=== PATIENT | female | born 1985 | race Caucasian/White ===

== ENCOUNTER 2020-01-17 12:13 | Outpatient (REF) | payer MEDICAID, SELFPAY | END 2020-01-17 12:14 | disposition home or self-care (01) | LOC: HO.LAB 12:13 | PROVIDERS: Visit Provider Internal Medicine | DX: Z20.828 Contact with and (suspected) exposure to other viral communicable diseases (principal) | CPT/HCPCS: C9803; U0003 ==

== ENCOUNTER 2020-04-30 15:14 | Outpatient (REF) | payer MEDICAID, SELFPAY | END 2020-04-30 15:15 | disposition home or self-care (01) | LOC: HO.LAB 15:14 | PROVIDERS: Visit Provider Internal Medicine | DX: Z20.822 Contact with and (suspected) exposure to COVID-19 (principal) | CPT/HCPCS: 36415; C9803; U0003; U0005 ==

== ENCOUNTER 2020-09-28 14:37 | Outpatient (REF) | payer MEDICAID, SELFPAY ==
[2020-09-28 15:22] LABS: COVID-19 Test Negative (Negative)
== END 2020-09-28 14:38 | disposition home or self-care (01) ==
LOC: HO.LAB 14:37
PROVIDERS: PCP Nurse Practitioner Family; Visit Provider Internal Medicine
DX: Z20.822 Contact with and (suspected) exposure to COVID-19 (principal)
CPT/HCPCS: 36415; 87635; C9803

== ENCOUNTER 2022-05-26 14:01 | Emergency (ER) | payer OTHER, SELFPAY ==
--- NOTE | ~2022-05-26 | XR_ITS ---
EXAMINATION: XR CHEST CLINICAL INFORMATION: Chest pain COMPARISON: None available. TECHNIQUE: 2 views of the chest were obtained. FINDINGS: No significant abnormality is noted involving the heart, lungs, mediastinum, bony thorax or soft tissues. XR/XR chest 2V IMPRESSION: Unremarkable chest examination.
--- NOTE | 2022-05-26 14:03 | ECG_ITS ---
Test Reason : chest pain Blood Pressure : / mmHG Vent. Rate : 079 BPM Atrial Rate : 079 BPM P-R Int : 142 ms QRS Dur : 088 ms QT Int : 390 ms P-R-T Axes : 031 056 051 degrees QTc Int : 447 ms Normal sinus rhythm Normal ECG When compared with ECG of 27-MAY-2013 17:05, No significant change was found Referred By: Generic ED Physician Electronically Signed By:DEVAUGHN THOMSON MD
--- NOTE | 2022-05-26 14:07 | ED_ITS ---
HPI - Chest Pain General Chief Complaint: Chest Pain <Carlene Hernandez NP - Last Filed: 05/26/22 14:10> Stated Complaint: sore throat/ chest pain x3 <Carlene Hernandez NP - Last Filed: 05/26/22 14:10> Time Seen by Provider: 05/26/22 14:39 <Carlene Hernandez NP - Last Filed: 05/26/22 14:10> Source: patient <LEA Thomas - Last Filed: 05/26/22 15:58> Mode of arrival: ambulatory <LEA Thomas - Last Filed: 05/26/22 15:58> Limitations: no limitations <LEA Thomas - Last Filed: 05/26/22 15:58> History of Present Illness HPI narrative: Patient is a 37 year old assigned female at with no significant PMH presenting to the emergency department today with episodic 5/10 stabbing left chest pain that radiates to the scapula lasting about 20 mins x3 days and sore throat this AM. Patient states that she does not have any heart condition. Reports the feeling like her heart skips a beat , dizziness, and nausea with the chest pain. Has not noticed any correlation with food. Reports her daughter just tested positive for streptococcal pharyngitis today. Patient denies any lightheadedness, abdominal pain, vomiting, fever, chills, blurry vision, double vision, loss of vision, difficulty breathing, shortness of breath, back pain, night sweats, pain with urination, increased urinary frequency, increased urinary urgency, blood in her urine or stool, syncope or a near syncopal episode, recent trauma or falls, bowel incontinence, bladder incontinence, bowel retention, bladder retention, or any other complaints at this time. <LEA Thomas - Last Filed: 05/26/22 15:58> MD complaint: chest pain <LEA Thomas - Last Filed: 05/26/22 15:58> Onset (ago): day(s) <LEA Thomas Last Filed: 05/26/22 15:58> Timing of current episode: episodic <LEA Thomas Last Filed: 05/26/22 15:58> Prior episodes: Yes <LEA Thomas - Last Filed: 05/26/22 15:58> Pain location: left chest <LEA Thomas - Last Filed: 05/26/22 15:58> Pain radiation: left scapula <LEA Thomas - Last Filed: 05/26/22 15:58> Quality: sharp <LEA Thomas - Last Filed: 05/26/22 15:58> Relieving factors: nothing <LEA Thomas - Last Filed: 05/26/22 15:58> Exacerbating factors: nothing <LEA Thomas - Last Filed: 05/26/22 15:58> Treatment prior to arrival: none <LEA Thomas - Last Filed: 05/26/22 15:58> Related Data Home Medications: Previous Rx's Medication Instructions Recorded penicillin V potassium 500 mg 500 mg PO BID 10 days #20 tabs 05/26/22 tablet <Carlene Hernandez NP - Last Filed: 05/26/22 14:10> Allergies/Adverse Reactions: Allergies Allergy/AdvReac Type Severity Reaction Status Date / Time No Known Allergies Allergy Verified 05/26/22 14:09 <Carlene Hernandez NP - Last Filed: 05/26/22 14:10> Review of Systems Constitutional: Constitutional: Reports no additional constitutional complaints, Denies chills, Denies fever(s) and Denies night sweats <LEA Thomas - Last Filed: 05/26/22 15:58> Eyes: Eyes: Reports no additional eye complaints, Denies blurry vision, Denies change in vision, Denies diplopia, Denies eye discharge, Denies loss of vision and Denies eye pain <LEA Thomas - Last Filed: 05/26/22 15:58> ENT: Denies dizziness and Reports sore throat <LEA Thomas - Last Filed: 05/26/22 15:58> Cardiovascular: Cardiovascular: Reports as per HPI, Reports chest pain, Reports chest pain at rest, Denies lightheadedness, Denies Loss of Consciousness and Denies dyspnea <LEA Thomas - Last Filed: 05/26/22 15:58> Respiratory: Respiratory: Reports no additional respiratory complaints and Denies dyspnea <LEA Thomas - Last Filed: 05/26/22 15:58> Gastrointestinal: Gastrointestinal: Reports no additional gastrointestinal complaints, Denies abdominal pain, Denies melena, Denies hematochezia, Denies change in bowel habits and Denies change in stool character <LEA Chaudhary - Last Filed: 05/26/22 15:58> Genitourinary: Genitourinary: Denies hematuria, Denies urinary frequency, Denies dysuria, Denies urinary incontinence, Denies urinary hesitancy and Denies urinary urgency <LEA Thomas - Last Filed: 05/26/22 15:58> Musculoskeletal: Musculoskeletal: Reports no additional musculoskeletal complaints, Denies numbness and Denies tingling <LEA Thomas - Last Filed: 05/26/22 15:58> Neurologic: Denies dizziness, Denies loss of vision, Denies numbness and Denies tingling <LEA Thomas - Last Filed: 05/26/22 15:58> Allergic/Immunologic: Allergic/Immunologic: Reports no additional allergic/immunologic complaints <LEA Thomas - Last Filed: 05/26/22 15:58> PMFSH Past Medical History Attestation statement: The following information was validated with the patient. <LEA Thomas - Last Filed: 05/26/22 15:58> Source: old records reviewed and nursing notes reviewed <LEA Thomas - Last Filed: 05/26/22 15:58> Social History Social History: Social History Alcohol intake: never Smoked in Last 30 Days: No Use of substances other than those prescribed or required for medical reasons: No Advance Directives: No <Carlene Hernandez NP - Last Filed: 05/26/22 14:10> Physical Exam Vital Signs: Vital Signs: Last Vital Signs Temp 98.8 F 05/26/22 14:25 Pulse 76 05/26/22 15:30 Resp 18 05/26/22 15:30 BP 137/77 05/26/22 15:30 Pulse Ox 98 05/26/22 15:30 O2 Del Method Room Air 05/26/22 15:30 BMI result Body Mass Index 30.9 <Carlene Hernandez NP - Last Filed: 05/26/22 14:10> Vital Signs: Last Vital Signs Temp 98.8 F 05/26/22 14:25 Pulse 76 05/26/22 15:30 Resp 18 05/26/22 15:30 BP 137/77 05/26/22 15:30 Pulse Ox 98 05/26/22 15:30 O2 Del Method Room Air 05/26/22 15:30 BMI result Body Mass Index 30.9 <LEA Thomas - Last Filed: 05/26/22 15:58> Const: General: cooperative, no acute distress, alert and awake <LEA Thomas - Last Filed: 05/26/22 15:58> Nutritional Appearance: well nourished <LEA Thomas - Last Filed: 05/26/22 15:58> Orientation/consciousness: patient oriented x3 <LEA Thomas - Last Filed: 05/26/22 15:58> Limitations: no limitations <LEA Thomas - Last Filed: 05/26/22 15:58> HEENT: Head: Yes normal to inspection and Yes atraumatic <LEA Thomas - Last Filed: 05/26/22 15:58> Ears: hearing grossly normal bilaterally and external ears normal <LEA Thomas - Last Filed: 05/26/22 15:58> General nose exam: Normal external nose present, no nasal discharge noted and no epistaxis <LEA Thomas - Last Filed: 05/26/22 15:58> Face and sinus: Yes normal facial exam, No abrasion and No laceration <LEA Thomas - Last Filed: 05/26/22 15:58> Mouth: Normal oral and palatal mucosa present, no drooling and no muffled voice <LEA Thomas - Last Filed: 05/26/22 15:58> Throat: Yes uvula midline and Yes abnormal tonsil (mildly swollen and erythematous ) <LEA Thomas - Last Filed: 05/26/22 15:58> Eyes: General: appearance normal, both eyes and all related structures <LEA Thomas - Last Filed: 05/26/22 15:58> Periorbital: periorbital findings normal <Zhane Mitchell PA - Last Filed: 05/26/22 15:58> Eyelids: Yes eyelids normal <Zhane Mitchell PA - Last Filed: 05/26/22 15:58> Conjunctivae: conjunctivae normal <Zhane Mitchell PA - Last Filed: 05/26/22 15:58> Pupils: Equal, round and reactive pupils present <Zhane Mitchell PA - Last Filed: 05/26/22 15:58> EOM: EOMs intact bilaterally <Zhane Mitchell PA - Last Filed: 05/26/22 15:58> Neck: Neck: Yes normal visual inspection, Yes full ROM and Yes no lymphadenopathy <Zhane Mitchell PA - Last Filed: 05/26/22 15:58> Chest: Chest palpation & inspection: normal inspection of the chest <Zhane Mitchell PA - Last Filed: 05/26/22 15:58> Resp: Effort & Inspection: normal respiratory effort and able to speak in complete sentences <Zhane Mitchell PA - Last Filed: 05/26/22 15:58> Auscultation: clear to auscultation bilaterally <Zhane Mitchell PA - Last Filed: 05/26/22 15:58> Cardio: Rate: regular rate <Zhane Mitchell PA - Last Filed: 05/26/22 1 5:58> Rhythm: regular rhythm <Zhane Mitchell PA - Last Filed: 05/26/22 15:58> GI: Inspection: Yes normal to inspection <Zhane Micthell PA - Last Filed: 05/26/22 15:58> Neuro: General: patient oriented x3 and moves all extremities <Zhane Mitchell PA - Last Filed: 05/26/22 15:58> Cranial nerves: Yes Equal, round and reactive pupils present <Zhane Mitchell PA - Last Filed: 05/26/22 15:58> Cognition (Neuro): normal cognition <Zhane Mitchell PA - Last Filed: 05/26/22 15:58> Motor exam (neuro): 5/5 motor strength present throughout <Zhane Mitchell PA - Last Filed: 05/26/22 15:58> Sensory Exam: Normal double simultaneous stimulation for sensation <LEA Thomas - Last Filed: 05/26/22 15:58> Coordination: [id number] test normal <LEA Thomas - Last Filed: 05/26/22 15:58> Extrem: General: Yes normal to inspection, Yes full ROM and Yes capillary refill normal <LEA Thomas - Last Filed: 05/26/22 15:58> Psych: Appearance: grossly normal <LEA Thomas - Last Filed: 05/26/22 15:58> Mental Status: mental status grossly normal <LEA Thomas - Last Filed: 05/26/22 15:58> Affect: normal affect <LEA Thomas - Last Filed: 05/26/22 15:58> Attitude: cooperative <LEA Thomas - Last Filed: 05/26/22 15:58> Thought process: Normal thought process present <LEA Thomas - Last Filed: 05/26/22 15:58> Thought content: Normal thought content present <LEA Thomas - Last Filed: 05/26/22 15:58> Insight: Good insight present (Psych) <LEA Thomas - Last Filed: 05/26/22 15:58> Course Course Course Narrative: This is a rapid medical exam. deferred additional HPI, ROS, PE to primary provider. 37 yo female with no known medical problems here with complaints of chest pain x 3 days, sore throat began today. Friend has strep. Will check labs, EKG, CXR, covid/flu/rsv/strep testing. VSS <Carlene Hernandez NP - Last Filed: 05/26/22 14:10> Medications Administered Discontinued Medications Generic Name Dose Route Start Last Admin Trade Name Freq PRN Reason Stop Dose Admin Penicillin V Potassium 500 mg 05/26/22 15:33 05/26/22 15:47 Penicillin V Potassium 250 Mg Tablet PO 05/26/22 15:34 500 mg ONCE ONE Administration <Carlene Hernandez NP - Last Filed: 05/26/22 14:10> Medications Administered Discontinued Medications Generic Name Dose Route Start Last Admin Trade Name Freq PRN Reason Stop Dose Admin Penicillin V Potassium 500 mg 05/26/22 15:33 05/26/22 15:47 Penicillin V Potassium 250 Mg Tablet PO 05/26/22 15:34 500 mg ONCE ONE Administration <LEA Thomas - Last Filed: 05/26/22 15:58> Medical Decision Making Medical Decision Making [facility] Narrative: Patient is a 37 year old assigned female at with no reported medical history presenting to the emergency department today with a sore throat and chest pain. Patient's physical exam was as documented in the physical examination portion of this chart. Patient's blood work was unremarkable. Patient's EKG was unremarkable. Patient's chest x-ray showed no acute process. Patient's strep test was positive. I explained my physical exam findings as well as all test results to the patient. I answered all questions asked by the patient. I stressed the importance of the patient taking her medication as prescribed. I stressed the importance of the patient following up with her primary care provider. I stressed the importance of the patient returning to the emergency department immediately if her symptoms were to worsen or if she were to develop any dizziness, shortness of breath, difficulty breathing, chest pain, blurry vision, loss of vision, nausea, vomiting, abdominal pain, fever, chills, back pain, or any other complaints. Patient verbalized agreement and understanding with this treatment plan and discharge. <LEA Thomas - Last Filed: 05/26/22 15:58> Differential Diagnosis Differential Diagnoses: The differential diagnosis associated with the presentation includes <LEA Thomas - Last Filed: 05/26/22 15:58> strep pharyngitis <LEA Thomas - Last Filed: 05/26/22 15:58> Lab Data [facility] Lab Attestation statement: I reviewed the patient's lab results. <LEA Thomas - Last Filed: 05/26/22 15:58> Result Diagrams: 05/26/22 14:36 05/26/22 14:36 <Carlene Hernandez NP - Last Filed: 05/26/22 14:10> Labs: Lab Results 05/26/22 05/26/22 05/26/22 Range/Units 14:36 14:36 14:36 WBC 11.5 H (4.8-10.8) X10*3/uL RBC 4.00 L (4.20-5.50) X10*6/uL Hgb 12.4 (12.0-16.0) g/dl Hct 37.5 (37.0-47.0) % MCV 93.8 (80.0-98.0) fL MCH 31.0 (27.0-33.0) pg MCHC 33.1 (31.0-35.0) g/dl RDW 13.7 (11.0-16.0) % Plt Count 310 (160-400) X10*3/uL MPV 9.3 L (9.4-12.3) fL Immature Gran % (Auto) 0.5 H (0.0-0.4) % Neut % (Auto) 85.0 H (45-73) % Lymph % (Auto) 9.8 L (20-40) % [place] % (Auto) 4.2 (2-11) % Eos % (Auto) 0.3 (0-4) % Baso % (Auto) 0.2 (0-2) % Lymph # (Auto) 1.1 L (1.2-4.9) X10*3/uL [place] # (Auto) 0.5 (0.1-1.2) X10*3/uL Eos # (Auto) 0.0 (0.0-0.4) X10*3/uL Baso # (Auto) 0.0 (0.0-0.2) X10*3/uL Abs Immat Gran (auto) 0.06 H (0.00-0.03) X10*3/uL Absolute Neuts (auto) 9.8 H (2.0-8.3) x10*3/uL Absolute Nucleated RBC 0.000 (0.0-0.012) X10*3/uL Nucleated RBC % (auto) 0.0 (0.0-0.2) /100WBC PT (10.0-13.1) SEC INR (0.9-1.1) Sodium 143 (135-145) mmol/L Potassium 3.6 (3.3-5.1) mmol/L Chloride 106 (96-108) mmol/L Carbon Dioxide 26 (22-29) mmol/L Anion Gap 15 (12-20) BUN 16 (9-16) mg/dL Creatinine 0.64 (0.5-1.4) mg/dL Estim Creat Clear Calc 117.7 Estimated GFR > 60 Random Glucose 88 (60-115) mg/dL Calcium 9.8 (8.4-10.2) mg/dL Total Bilirubin 0.8 (0.0-1.0) mg/dL Direct Bilirubin 0.2 (0.0-0.5) mg/dL AST 13 (5-31) U/L ALT 12 (0-31) U/L Alkaline Phosphatase 91 (39-117) U/L Troponin I High Sens < 2.7 (<3.5-17.0) ng/L Total Protein 7.2 (6.5-8.0) g/dL Albumin 4.4 (3.5-5.0) g/dL Influenza Type A (PCR) (Negative) Influenza Type B (PCR) (Negative) RSV RNA Qual (PCR) (Negative) SARS-CoV-2 RNA (RT-PCR) (Negative) S. pyogenes GrpA JAYLAN (Negative) 05/26/22 05/26/22 05/26/22 Range/Units 14:36 14:37 14:37 WBC (4.8-10.8) X10*3/uL RBC (4.20-5.50) X10*6/uL Hgb (12.0-16.0) g/dl Hct (37.0-47.0) % MCV (80.0-98.0) fL MCH (27.0-33.0) pg MCHC (31.0-35.0) g/dl RDW (11.0-16.0) % Plt Count (160-400) X10*3/uL MPV (9.4-12.3) fL Immature Gran % (Auto) (0.0-0.4) % Neut % (Auto) (45-73) % Lymph % (Auto) (20-40) % [place] % (Auto) (2-11) % Eos % (Auto) (0-4) % Baso % (Auto) (0-2) % Lymph # (Auto) (1.2-4.9) X10*3/uL [place] # (Auto) (0.1-1.2) X10*3/uL Eos # (Auto) (0.0-0.4) X10*3/uL Baso # (Auto) (0.0-0.2) X10*3/uL Abs Immat Gran (auto) (0.00-0.03) X10*3/uL Absolute Neuts (auto) (2.0-8.3) x10*3/uL Absolute Nucleated RBC (0.0-0.012) X10*3/uL Nucleated RBC % (auto) (0.0-0.2) /100WBC PT 12.9 (10.0-13.1) SEC INR 1.1 (0.9-1.1) Sodium (135-145) mmol/L Potassium (3.3-5.1) mmol/L Chloride (96-108) mmol/L Carbon Dioxide (22-29) mmol/L Anion Gap (12-20) BUN (9-16) mg/dL Creatinine (0.5-1.4) mg/dL Estim Creat Clear Calc Estimated GFR Random Glucose (60-115) mg/dL Calcium (8.4-10.2) mg/dL Total Bilirubin (0.0-1.0) mg/dL Direct Bilirubin (0.0-0.5) mg/dL AST (5-31) U/L ALT (0-31) U/L Alkaline Phosphatase (39-117) U/L Troponin I High Sens (<3.5-17.0) ng/L Total Protein (6.5-8.0) g/dL Albumin (3.5-5.0) g/dL Influenza Type A (PCR) NEGATIVE (Negative) Influenza Type B (PCR) NEGATIVE (Negative) RSV RNA Qual (PCR) NEGATIVE (Negative) SARS-CoV-2 RNA (RT-PCR) NEGATIVE (Negative) S. pyogenes GrpA JAYLAN Positive A (Negative) <Carlene Hernandez CLINICAL EXERCISE PHYSIOLOGIST - Last Filed: 05/26/22 14:10> Lab Results 05/26/22 05/26/22 05/26/22 Range/Units 14:36 14:36 14:36 WBC 11.5 H (4.8-10.8) X10*3/uL RBC 4.00 L (4.20-5.50) X10*6/uL Hgb 12.4 (12.0-16.0) g/dl Hct 37.5 (37.0-47.0) % MCV 93.8 (80.0-98.0) fL MCH 31.0 (27.0-33.0) pg MCHC 33.1 (31.0-35.0) g/dl RDW 13.7 (11.0-16.0) % Plt Count 310 (160-400) X10*3/uL MPV 9.3 L (9.4-12.3) fL Immature Gran % (Auto) 0.5 H (0.0-0.4) % Neut % (Auto) 85.0 H (45-73) % Lymph % (Auto) 9.8 L (20-40) % [place] % (Auto) 4.2 (2-11) % Eos % (Auto) 0.3 (0-4) % Baso % (Auto) 0.2 (0-2) % Lymph # (Auto) 1.1 L (1.2-4.9) X10*3/uL [place] # (Auto) 0.5 (0.1-1.2) X10*3/uL Eos # (Auto) 0.0 (0.0-0.4) X10*3/uL Baso # (Auto) 0.0 (0.0-0.2) X10*3/uL Abs Immat Gran (auto) 0.06 H (0.00-0.03) X10*3/uL Absolute Neuts (auto) 9.8 H (2.0-8.3) x10*3/uL Absolute Nucleated RBC 0.000 (0.0-0.012) X10*3/uL Nucleated RBC % (auto) 0.0 (0.0-0.2) /100WBC PT (10.0-13.1) SEC INR (0.9-1.1) Sodium 143 (135-145) mmol/L Potassium 3.6 (3.3-5.1) mmol/L Chloride 106 (96-108) mmol/L Carbon Dioxide 26 (22-29) mmol/L Anion Gap 15 (12-20) BUN 16 (9-16) mg/dL Creatinine 0.64 (0.5-1.4) mg/dL Estim Creat Clear Calc 117.7 Estimated GFR > 60 Random Glucose 88 (60-115) mg/dL Calcium 9.8 (8.4-10.2) mg/dL Total Bilirubin 0.8 (0.0-1.0) mg/dL Direct Bilirubin 0.2 (0.0-0.5) mg/dL AST 13 (5-31) U/L ALT 12 (0-31) U/L Alkaline Phosphatase 91 (39-117) U/L Troponin I High Sens < 2.7 (<3.5-17.0) ng/L Total Protein 7.2 (6.5-8.0) g/dL Albumin 4.4 (3.5-5.0) g/dL Influenza Type A (PCR) (Negative) Influenza Type B (PCR) (Negative) RSV RNA Qual (PCR) (Negative) SARS-CoV-2 RNA (RT-PCR) (Negative) S. pyogenes GrpA JAYLAN (Negative) 05/26/22 05/26/22 05/26/22 Range/Units 14:36 14:37 14:37 WBC (4.8-10.8) X10*3/uL RBC (4.20-5.50) X10*6/uL Hgb (12.0-16.0) g/dl Hct (37.0-47.0) % MCV (80.0-98.0) fL MCH (27.0-33.0) pg MCHC (31.0-35.0) g/dl RDW (11.0-16.0) % Plt Count (160-400) X10*3/uL MPV (9.4-12.3) fL Immature Gran % (Auto) (0.0-0.4) % Neut % (Auto) (45-73) % Lymph % (Auto) (20-40) % [place] % (Auto) (2-11) % Eos % (Auto) (0-4) % Baso % (Auto) (0-2) % Lymph # (Auto) (1.2-4.9) X10*3/uL [place] # (Auto) (0.1-1.2) X10*3/uL Eos # (Auto) (0.0-0.4) X10*3/uL Baso # (Auto) (0.0-0.2) X10*3/uL Abs Immat Gran (auto) (0.00-0.03) X10*3/uL Absolute Neuts (auto) (2.0-8.3) x10*3/uL Absolute Nucleated RBC (0.0-0.012) X10*3/uL Nucleated RBC % (auto) (0.0-0.2) /100WBC PT 12.9 (10.0-13.1) SEC INR 1.1 (0.9-1.1) Sodium (135-145) mmol/L Potassium (3.3-5.1) mmol/L Chloride (96-108) mmol/L Carbon Dioxide (22-29) mmol/L Anion Gap (12-20) BUN (9-16) mg/dL Creatinine (0.5-1.4) mg/dL Estim Creat Clear Calc Estimated GFR Random Glucose (60-115) mg/dL Calcium (8.4-10.2) mg/dL Total Bilirubin (0.0-1.0) mg/dL Direct Bilirubin (0.0-0.5) mg/dL AST (5-31) U/L ALT (0-31) U/L Alkaline Phosphatase (39-117) U/L Troponin I High Sens (<3.5-17.0) ng/L Total Protein (6.5-8.0) g/dL Albumin (3.5-5.0) g/dL Influenza Type A (PCR) NEGATIVE (Negative) Influenza Type B (PCR) NEGATIVE (Negative) RSV RNA Qual (PCR) NEGATIVE (Negative) SARS-CoV-2 RNA (RT-PCR) NEGATIVE (Negative) S. pyogenes GrpA JAYLAN Positive A (Negative) <LEA Thomas - Last Filed: 05/26/22 15:58> Independent Interpretation I performed an independent interpretation of an: EKG <LEA Thomas - Last Filed: 05/26/22 15:58> Interpretation: Vent. Rate: 079 BPM ? ? Atrial Rate: 079 BPM P-R Int: 142 ms? QRS Dur: 088 ms QT Int: 390 ms ? ? ? P-R-T Axes: 031 056 051 degrees QTc Int: 447 ms ? Normal sinus rhythm Normal ECG When compared with ECG of 27-MAY-2013 17:05, No significant change was found DD/ 1404 <LEA Thomas - Last Filed: 05/26/22 15:58> Radiology Impression Radiologist Impression: My interpretation is in agreement with the radiologist's impression of this imaging study. EXAMINATION: XR CHEST CLINICAL INFORMATION: Chest pain COMPARISON: None available. TECHNIQUE: 2 views of the chest were obtained. FINDINGS: No significant abnormality is noted involving the heart, lungs, mediastinum, bony thorax or soft tissues. XR/XR chest 2V IMPRESSION: Unremarkable chest examination. Dictated By: Brian Wharton MD Signed By: Electronically signed by Brian Wharton MD 05/26/22 1436 <LEA Thomas - Last Filed: 05/26/22 15:58> Discharge Plan Discharge Clinical Impression: Strep pharyngitis <Carlene Hernandez NP - Last Filed: 05/26/22 14:10> Patient Disposition: Home, Self-Care <Carlene Hernandez NP - Last Filed: 05/26/22 14:10> Instructions: Strep Throat (DC) <Carlene Hernandez NP - Last Filed: 05/26/22 14:10> Additional Instructions: Follow up with your primary care provider. Return to the emergency department immediately if your symptoms worsen or if you develop any dizziness, shortness of breath, difficulty breathing, chest pain, blurry vision, loss of vision, nausea, vomiting, abdominal pain, fever, chills, back pain, or any other complaints. <Carlene Hernandez NP - Last Filed: 05/26/22 14:10> Prescriptions: New penicillin V potassium 500 mg tablet 500 mg PO BID 10 Days Qty: 20 0RF <Carlene Hernandez NP - Last Filed: 05/26/22 14:10> Referrals: Diane Maddox, CLINICAL EXERCISE PHYSIOLOGIST [Primary Care Provider] - <Carlene Hernandez NP - Last Filed: 05/26/22 14:10> Stand Alone Forms: Work/School Release <Carlene Hernandez NP - Last Filed: 05/26/22 14:10> Interventions: ED Discharge Assessment Last Done: 05/26/22 15:48 <Carlene Hernandez NP - Last Filed: 05/26/22 14:10> Discharge Date/Time: 05/26/22 15:48 <Carlene Hernandez NP - Last Filed: 05/26/22 14:10> Print Language: Greek <Carlene Hernandez NP - Last Filed: 05/26/22 14:10>
[2022-05-26 14:10] VITALS: BP 129/80; PULSE 88; RESP 18; TEMP 36.6; O2SAT 98; BMI 30.9
[2022-05-26 14:25] VITALS: BP 126/71; PULSE 74; RESP 17; TEMP 37.1; O2SAT 99
--- NOTE | 2022-05-26 14:40 | PC.NURSE ---
Pt arrived ambulatory, complaints of CP x3days, with sharp pains that shoot through to her back. She is a/ox4, reports heart fluttering as well, with moments of SOB. Denies n/v/d. Labs obtained, and pt placed on monitor, provider at bedside now.
[2022-05-26 14:41] LABS: MANUAL DIFF FLAG NO
[2022-05-26 14:46] LABS: Basophils Percent Auto 0.2 % (0-2); Eosinophils Percent Auto 0.3 % (0-4); Hematocrit 37.5 % (37.0-47.0); Hemoglobin 12.4 g/dl (12.0-16.0); Imm Gran Abs Auto 0.06 X10*3/uL (0.00-0.03); Imm Gran Pct Auto 0.5 % (0.0-0.4); Lymphocytes Absolute Auto 1.1 X10*3/uL (1.2-4.9); Lymphocytes Percent Auto 9.8 % (20-40); Mean Corpuscular HGB Conc 33.1 g/dl (31.0-35.0); Mean Corpuscular Volume 93.8 fL (80.0-98.0); Mean Platelet Volume 9.3 fL (9.4-12.3); Monocytes Absolute Auto 0.5 X10*3/uL (0.1-1.2); Monocytes Percent Auto 4.2 % (2-11); Neutrophils Absolute Auto 9.8 x10*3/uL (2.0-8.3); Platelet Count 310 X10*3/uL (160-400); Red Cell Distribution Width 13.7 % (11.0-16.0); White Blood Count 11.5 X10*3/uL (4.8-10.8)
[2022-05-26 14:59] LABS: INTERNATIONAL NORM RATIO 1.1 (0.9-1.1); Prothrombin Time 12.9 SEC (10.0-13.1)
[2022-05-26 15:00] LABS: Alanine Aminotransferase 12 U/L (0-31); Albumin Level 4.4 g/dL (3.5-5.0); Alkaline Phosphatase 91 U/L (39-117); Anion Gap 15 (12-20); Aspartate Amino Transferase 13 U/L (5-31); Bilirubin Direct 0.2 mg/dL (0.0-0.5); Bilirubin Total 0.8 mg/dL (0.0-1.0); Blood Urea Nitrogen 16 mg/dL (9-16); Calcium 9.8 mg/dL (8.4-10.2); Carbon Dioxide 26 mmol/L (22-29); Chloride 106 mmol/L (96-108); Creatinine Clr Calc Pharmacy 117.7; Estimated Glomerular Filt Rate > 60; Glucose Random 88 mg/dL (60-115); Potassium 3.6 mmol/L (3.3-5.1); Sodium 143 mmol/L (135-145); Total Protein 7.2 g/dL (6.5-8.0)
[2022-05-26 15:14] LABS: Troponin-I High Sensitivity < 2.7 ng/L (<3.5-17.0)
[2022-05-26 15:23] LABS: IDNOW Serial# 08D9AD1C; Strep A Nucleic Acid Positive (Negative)
[2022-05-26 15:30] VITALS: BP 137/77; PULSE 76; RESP 18; O2SAT 98
[2022-05-26 15:32] LABS: Influenza A PCR NEGATIVE (Negative); Influenza B PCR NEGATIVE (Negative); Resp Syncy Virus RNA Qual PCR NEGATIVE (Negative); SARS COV2 PCR INHOUSE NEGATIVE (Negative)
[2022-05-26] MEDS: Penicillin V Potassium 250 MG TABLET 500 MG PO (15:47)
== END 2022-05-26 15:48 | disposition home or self-care (01) ==
PROVIDERS: Nurse Practitioner Family; Emergency Provider Emergency Medicine; PCP Nurse Practitioner Family
DX: J02.0 Streptococcal pharyngitis (principal); R07.89 Other chest pain; Z20.822 Contact with and (suspected) exposure to COVID-19; Z20.828 Contact with and (suspected) exposure to other viral communicable diseases; Z79.899 Other long term (current) drug therapy
CPT/HCPCS: 0241U; 36415; 71046; 80048; 80076; 84484; 85025; 85610; 87651; 93005; 99283; 99285

== ENCOUNTER 2022-08-28 14:25 | Emergency (ER) | payer OTHER, SELFPAY ==
--- NOTE | ~2022-08-28 | CT_ITS ---
EXAMINATION: CT HEAD WITHOUT CONTRAST CLINICAL INFORMATION: Headache. COMPARISON: None available. TECHNIQUE: Contiguous axial imaging was performed from the skull base to vertex without intravenous administration of contrast. Coronal and sagittal reformatted images were obtained. This CT examination was performed using dose optimization techniques as appropriate, variously including the following: *Automated exposure control *Adjustment of mA and/or kV according to patient size (this includes techniques or standardized protocols for targeted exams where dose is matched to indication/reason for exam; i.e. extremities or head) *Use of iterative reconstruction technique DLP: 650 mGy-cm FINDINGS: The cortical sulci are normal. The lateral ventricles are symmetrical. The third and fourth ventricles are in their normal midline position. The basilar and prepontine cisterns are unremarkable. There is no acute intra or extracerebral abnormality. There is no mass effect or midline shift. Sections through the bony calvarium are unremarkable. The paranasal sinuses are clear. The bony orbits and orbital contents are unremarkable. CT/CT head/brain wo IV con IMPRESSION: No acute intracranial pathology.
--- NOTE | 2022-08-28 14:27 | ECG_ITS ---
Test Reason : CHEST PAIN Blood Pressure : / mmHG Vent. Rate : 058 BPM Atrial Rate : 058 BPM P-R Int : 130 ms QRS Dur : 090 ms QT Int : 420 ms P-R-T Axes : 029 052 055 degrees QTc Int : 412 ms Sinus bradycardia Nonspecific T wave abnormality Abnormal ECG When compared with ECG of 26-MAY-2022 14:04, No significant change was found Referred By: Generic ED Physician Electronically Signed By:Jaleel Ag
--- NOTE | 2022-08-28 14:32 | ED.HA ---
HPI - Headache General Chief Complaint: General Medical Stated Complaint: L side face pain, chest pain Time Seen by Provider: 08/28/22 16:18 Source: patient, RN notes reviewed and old records reviewed Mode of arrival: ambulatory Limitations: no limitations History of Present Illness HPI Narrative: 37-year-old female presents for evaluation of left-sided headache Patient reports that her symptoms started a few days ago Denies any trauma to the head or the neck. The pain does not radiate pain She does report associated left-sided neck pain Patient reports a history of migraines but reports this feels different She took her Imitrex that did not improve her symptoms Denies any nausea, vomiting, blurry vision, dizziness No other complaints or concerns at this time Related Data Previous Rx's Medication Instructions Recorded penicillin V potassium 500 mg 500 mg PO BID 10 days #20 tabs 05/26/22 tablet pblmruxnla-ehxehxlnhufej-bjutrzvb 1 cap PO TID PRN headache #15 caps 08/28/22 50 mg-300 mg-40 mg capsule (Fioricet) Allergies Allergy/AdvReac Type Severity Reaction Status Date / Time No Known Allergies Allergy Verified 05/26/22 14:09 Review of Systems Constitutional: Constitutional: Denies chills, Denies fever(s) and Reports headache(s) Eyes: Eyes: Denies blurry vision ENT: Reports headache(s) and Denies disequilibrium Gastrointestinal: Gastrointestinal: Denies nausea and Denies vomiting Musculoskeletal: Musculoskeletal: Denies back pain Neurologic: Reports headache(s) and Denies disequilibrium PMFSH Social History Social History Alcohol intake: never Smoked in Last 30 Days: No Use of substances other than those prescribed or required for medical reasons: No Advance Directives: No Advance Directives Information Provided: No Physical Exam Vital Signs: Vital Signs: Last Vital Signs Temp 98.5 F 08/28/22 15:11 Pulse 77 08/28/22 16:15 Resp 12 08/28/22 16:15 BP 129/71 08/28/22 16:15 Pulse Ox 97 08/28/22 16:15 O2 Del Method Room Air 08/28/22 16:15 BMI result Body Mass Index 30.5 Const: General: healthy appearing, comfortable, no acute distress, alert and awake Nutritional Appearance: well nourished Orientation/consciousness: patient oriented x3 HEENT: Head: Yes normocephalic and Yes atraumatic Eyes: Eyelids: Yes eyelids normal Conjunctivae: conjunctivae normal Sclerae: sclerae normal Corneas: corneas normal Pupils: Equal, round and reactive pupils present EOM: EOMs intact bilaterally Neck: Neck: Yes full ROM Resp: Effort & Inspection: normal respiratory effort, able to speak in complete sentences and not labored Cardio: Rate: regular rate Rhythm: regular rhythm Skin: General skin exam: no rashes or lesions noted and elasticity normal Neuro: General: patient oriented x3 Cranial nerves: Yes Equal, round and reactive pupils present and Yes Bilaterally intact EOM present Cognition (Neuro): normal cognition Course Course Course Narrative: RME-14:34PM - 37yoF with a PMHx of Headaches on sumatriptan as needed presenting to the ED with c/o of left sided head pain budging sensation worse today that has been constant. She has taken OTC medications and no symptomatic relief. Reports that it does not feel like her regular headaches this feels completely different. She also feels a lump to the left posterior occipital aspect of her head that she has not had in the past. She reports the pain is radiating to her left neck/chest area. She reports she has never had any of the symptoms in the past she reports associated blurry vision to the left eye. Normal vision to the right eye. She reports nothing makes it worse and nothing makes it better. She also has been feeling off balance. She denies recent head trauma, fevers. Plan: Labs, CT scan of brain an EKG ordered at this time patient is stable to be sent back to the waiting room to be evaluated in the ED. Medical Decision Making Medical Decision Making [facility] Narrative: 37-year-old female presents for evaluation of headache. She does have a history of migraine headaches reports this feels different than her usual headaches. Denies any trauma. She does have some left-sided cervical paraspinous muscle tenderness. No neuro findings on exam, she denies any neuro symptoms. CT scan of brain is unremarkable. Patient had an ESR that was negative, this essentially rules out temporal arteritis. Will treat the patient's headache and she will follow-up with her PCP Differential Diagnosis Tension headache Cluster headache Migraine headache Temporal arteritis Intracranial mass Lab Data [facility] Lab Attestation statement: I reviewed the patient's lab results. (Patient's hematology significant for a very mild anemia with hemoglobin 11.8 and hematocrit 36.3. Patient's potassium is slightly low at 3.2, no other electrolyte abnormalities) 08/28/22 15:21 08/28/22 15:21 Labs: Lab Results 08/28/22 08/28/22 08/28/22 Range/Units 15:21 15:21 15:21 WBC 4.4 L (4.8-10.8) X10*3/uL RBC 3.89 L (4.20-5.50) X10*6/uL Hgb 11.8 L (12.0-16.0) g/dl Hct 36.3 L (37.0-47.0) % MCV 93.3 (80.0-98.0) fL MCH 30.3 (27.0-33.0) pg MCHC 32.5 (31.0-35.0) g/dl RDW 13.3 (11.0-16.0) % Plt Count 298 (160-400) X10*3/uL MPV 9.2 L (9.4-12.3) fL Immature Gran % (Auto) 0.2 (0.0-0.4) % Neut % (Auto) 59.3 (45-73) % Lymph % (Auto) 33.0 (20-40) % Larimer % (Auto) 5.4 (2-11) % Eos % (Auto) 1.6 (0-4) % Baso % (Auto) 0.5 (0-2) % Lymph # (Auto) 1.5 (1.2-4.9) X10*3/uL [place] # (Auto) 0.2 (0.1-1.2) X10*3/uL Eos # (Auto) 0.1 (0.0-0.4) X10*3/uL Baso # (Auto) 0.0 (0.0-0.2) X10*3/uL Abs Immat Gran (auto) 0.01 (0.00-0.03) X10*3/uL Absolute Neuts (auto) 2.6 (2.0-8.3) x10*3/uL Absolute Nucleated RBC 0.000 (0.0-0.012) X10*3/uL Nucleated RBC % (auto) 0.0 (0.0-0.2) /100WBC ESR 12 (0-20) MM/HR PT 12.7 (10.0-13.1) SEC INR 1.1 (0.9-1.1) Sodium (135-145) mmol/L Potassium (3.3-5.1) mmol/L Chloride (96-108) mmol/L Carbon Dioxide (22-29) mmol/L Anion Gap (12-20) BUN (9-16) mg/dL Creatinine (0.5-1.4) mg/dL Estim Creat Clear Calc Estimated GFR Random Glucose (60-115) mg/dL Calcium (8.4-10.2) mg/dL Magnesium (1.6-2.6) mg/dL Total Bilirubin (0.0-1.0) mg/dL Direct Bilirubin (0.0-0.5) mg/dL AST (5-31) U/L ALT (0-31) U/L Alkaline Phosphatase (39-117) U/L C-Reactive Protein (< or = 0.50) mg/dL Total Protein (6.5-8.0) g/dL Albumin (3.5-5.0) g/dL Lipase (8-78) U/L Beta HCG, Quant mIU/mL 08/28/22 08/28/22 Range/Units 15:21 15:21 WBC (4.8-10.8) X10*3/uL RBC (4.20-5.50) X10*6/uL Hgb (12.0-16.0) g/dl Hct (37.0-47.0) % MCV (80.0-98.0) fL MCH (27.0-33.0) pg MCHC (31.0-35.0) g/dl RDW (11.0-16.0) % Plt Count (160-400) X10*3/uL MPV (9.4-12.3) fL Immature Gran % (Auto) (0.0-0.4) % Neut % (Auto) (45-73) % Lymph % (Auto) (20-40) % Larimer % (Auto) (2-11) % Eos % (Auto) (0-4) % Baso % (Auto) (0-2) % Lymph # (Auto) (1.2-4.9) X10*3/uL Larimer # (Auto) (0.1-1.2) X10*3/uL Eos # (Auto) (0.0-0.4) X10*3/uL Baso # (Auto) (0.0-0.2) X10*3/uL Abs Immat Gran (auto) (0.00-0.03) X10*3/uL Absolute Neuts (auto) (2.0-8.3) x10*3/uL Absolute Nucleated RBC (0.0-0.012) X10*3/uL Nucleated RBC % (auto) (0.0-0.2) /100WBC ESR (0-20) MM/HR PT (10.0-13.1) SEC INR (0.9-1.1) Sodium 145 (135-145) mmol/L Potassium 3.2 L (3.3-5.1) mmol/L Chloride 107 (96-108) mmol/L Carbon Dioxide 27 (22-29) mmol/L Anion Gap 14 (12-20) BUN 15 (9-16) mg/dL Creatinine 0.75 (0.5-1.4) mg/dL Estim Creat Clear Calc 99.5 Estimated GFR > 60 Random Glucose 105 (60-115) mg/dL Calcium 10.0 (8.4-10.2) mg/dL Magnesium 2.0 (1.6-2.6) mg/dL Total Bilirubin 0.6 (0.0-1.0) mg/dL Direct Bilirubin 0.2 (0.0-0.5) mg/dL AST 12 (5-31) U/L ALT 8 (0-31) U/L Alkaline Phosphatase 77 (39-117) U/L C-Reactive Protein < 0.10 (< or = 0.50) mg/dL Total Protein 7.4 (6.5-8.0) g/dL Albumin 4.4 (3.5-5.0) g/dL Lipase 24 (8-78) U/L Beta HCG, Quant < 2 mIU/mL Independent Interpretation I performed an independent interpretation of an: CT Scan Interpretation: No intracranial mass or obvious trauma hemorrhage Radiology Impression Discussion of test interpretation with radiology: I have reviewed the radiologist's reading. Radiologist Impression: CT scan shows no acute intracranial abnormality Discharge Plan Discharge Clinical Impression: Acute headache, Hypokalemia Patient Disposition: Home, Self-Care Instructions: Acute Headache (DC) Additional Instructions: Your workup in the emergency department was reassuring. Your blood work did show a very mild hypokalemia which is low potassium You may increase oral intake of potassium rich foods such as citrus and bananas Follow-up with your primary doctor within the next 2 weeks to have a repeat blood work Your CT scan did not show any concerning abnormalities for your headache Use ibuprofen as needed for your headache. You may also continue to use Imitrex You may use the Fioricet for breakthrough headaches Return for new or worsening symptoms Prescriptions: New kvhcuijakx-epsyhplsoagmd-dqwz [Fioricet] 50-300-40 mg capsule 1 cap PO TID PRN (Reason: headache) Qty: 15 0RF No Action penicillin V potassium 500 mg tablet 500 mg PO BID 10 Days Qty: 20 0RF
[2022-08-28 14:33] VITALS: BP 147/79; PULSE 66; RESP 16; TEMP 35.9; O2SAT 100; BMI 30.5
[2022-08-28 15:11] VITALS: BP 125/75; PULSE 58; RESP 18; TEMP 36.9; O2SAT 100
[2022-08-28 15:26] LABS: MANUAL DIFF FLAG NO
[2022-08-28 15:28] LABS: Basophils Percent Auto 0.5 % (0-2); Eosinophils Absolute Auto 0.1 X10*3/uL (0.0-0.4); Eosinophils Percent Auto 1.6 % (0-4); Hematocrit 36.3 % (37.0-47.0); Hemoglobin 11.8 g/dl (12.0-16.0); Imm Gran Abs Auto 0.01 X10*3/uL (0.00-0.03); Imm Gran Pct Auto 0.2 % (0.0-0.4); Lymphocytes Absolute Auto 1.5 X10*3/uL (1.2-4.9); Mean Corpuscular HGB Conc 32.5 g/dl (31.0-35.0); Mean Corpuscular Hemoglobin 30.3 pg (27.0-33.0); Mean Corpuscular Volume 93.3 fL (80.0-98.0); Mean Platelet Volume 9.2 fL (9.4-12.3); Monocytes Absolute Auto 0.2 X10*3/uL (0.1-1.2); Monocytes Percent Auto 5.4 % (2-11); Neutrophils Absolute Auto 2.6 x10*3/uL (2.0-8.3); Neutrophils Percent Auto 59.3 % (45-73); Platelet Count 298 X10*3/uL (160-400); Red Blood Count 3.89 X10*6/uL (4.20-5.50); Red Cell Distribution Width 13.3 % (11.0-16.0); White Blood Count 4.4 X10*3/uL (4.8-10.8)
[2022-08-28 15:38] LABS: INTERNATIONAL NORM RATIO 1.1 (0.9-1.1); Prothrombin Time 12.7 SEC (10.0-13.1)
[2022-08-28 15:47] LABS: Alanine Aminotransferase 8 U/L (0-31); Albumin Level 4.4 g/dL (3.5-5.0); Alkaline Phosphatase 77 U/L (39-117); Anion Gap 14 (12-20); Aspartate Amino Transferase 12 U/L (5-31); Bilirubin Direct 0.2 mg/dL (0.0-0.5); Bilirubin Total 0.6 mg/dL (0.0-1.0); Blood Urea Nitrogen 15 mg/dL (9-16); C Reactive Protein < 0.10 mg/dL (< or = 0.50); Carbon Dioxide 27 mmol/L (22-29); Chloride 107 mmol/L (96-108); Creatinine Clr Calc Pharmacy 99.5; Estimated Glomerular Filt Rate > 60; Glucose Random 105 mg/dL (60-115); Lipase 24 U/L (8-78); Potassium 3.2 mmol/L (3.3-5.1); Sodium 145 mmol/L (135-145); Total Protein 7.4 g/dL (6.5-8.0)
[2022-08-28 15:58] LABS: HCG Quantitative < 2 mIU/mL
[2022-08-28 16:15] VITALS: BP 129/71; PULSE 77; RESP 12; O2SAT 97
[2022-08-28 16:16] LABS: Erythrocyte Sedimentation Rate 12 MM/HR (0-20)
--- NOTE | 2022-08-28 16:21 | PC.NURSE ---
provider at bedside aware pt c/o headache and chest pain. pt resting talking w/o issue. vss.
[2022-08-28] MEDS: Potassium Chloride ER 20 MEQ TAB.ER.PRT 40 MEQ PO (17:48)
[2022-08-28 17:50] VITALS: BP 118/69; PULSE 69; RESP 16; TEMP 36.9; O2SAT 97
== END 2022-08-28 17:58 | disposition home or self-care (01) ==
PROVIDERS: Physician Assistant Medical; Emergency Provider Emergency Medicine; PCP Nurse Practitioner Family
DX: R51.9 Headache, unspecified (principal); R07.89 Other chest pain; E87.6 Hypokalemia; Z79.899 Other long term (current) drug therapy
CPT/HCPCS: 36415; 70450; 80053; 82248; 83690; 83735; 84702; 85025; 85610; 85652; 86140; 93005; 99284; 99285

== ENCOUNTER → 2022-08-28 14:27 | Outpatient (BNV) | payer OTHER, SELFPAY | PROVIDERS: Emergency Provider Emergency Medicine; PCP Nurse Practitioner Family; Visit Provider Internal Medicine Cardiovascular Disease | DX: R00.1 Bradycardia, unspecified (principal) | CPT/HCPCS: 93010 ==

== ENCOUNTER 2022-09-08 10:10 | Emergency (ER) | payer OTHER, SELFPAY ==
--- NOTE | ~2022-09-08 | XR_ITS ---
EXAMINATION: XR HAND, RIGHT CLINICAL INFORMATION: Right hand pain status post injury. COMPARISON: None available. TECHNIQUE: PA, lateral, and oblique views of the right hand. An indicator arrow points to the fifth metacarpophalangeal joint. FINDINGS: The bones and soft tissues are normal. No fracture. Alignment is anatomic. Joint spaces are maintained. No erosions or soft tissue calcifications. XR/XR hand RT min 3V IMPRESSION: Unremarkable right hand.
[2022-09-08 10:13] VITALS: BP 128/78; PULSE 58; RESP 16; TEMP 36.4; O2SAT 100; BMI 30.7
--- NOTE | 2022-09-08 11:15 | ED.EXTPRO ---
HPI - Extremity Problem General Chief complaint: Extremity Injury, Upper Stated complaint: r hand inj Time Seen by Provider: 09/08/22 10:53 Source: patient Mode of arrival: ambulatory Limitations: no limitations History of Present Illness HPI Narrative: 37 year old female with no significant past medical history, right hand dominant, presenting to the ED today with right hand/ wrist pain s/p hitting her right hand on her rear view mirror after pulling her purse strap out of her car door. She noted immediate pain and bruising to the lateral aspect of her right hand with some pain radiation into the right forearm. Able to flex/ extend all digits with some discomfort. Denies numbness/ tingling/ weakness to the right hand. MD Complaint: extremity pain (R hand) Onset (ago): hour(s) Pain Consistency: constant Location: right Quality: aching Radiation: proximal (forearm) Relieving factors: nothing Exacerbating factors: range of motion Associated symptoms: denies other symptoms Context: other (trauma) Related Data Previous Rx's Medication Instructions Recorded penicillin V potassium 500 mg 500 mg PO BID 10 days #20 tabs 05/26/22 tablet uurqftjnub-jhktkqwxuehle-qnrghlqf 1 cap PO TID PRN headache #15 caps 08/28/22 50 mg-300 mg-40 mg capsule (Fioricet) Allergies Allergy/AdvReac Type Severity Reaction Status Date / Time No Known Allergies Allergy Verified 05/26/22 14:09 Review of Systems Review of Systems: Yes all other systems are reviewed and are negative [facility] Past Medical History Attestation statement: The following information was validated with the patient. Source: old records reviewed Social History Social History Alcohol intake: never Advance Directives: No Physical Exam Vital Signs: Vital Signs: Last Vital Signs Temp 97.6 F 09/08/22 10:13 Pulse 58 09/08/22 10:13 Resp 16 09/08/22 10:13 BP 128/78 09/08/22 10:13 Pulse Ox 100 09/08/22 10:13 O2 Del Method Room Air 09/08/22 10:13 BMI result Body Mass Index 30.7 Appearance: Alert. Oriented X3. No acute distress. Head: normocephalic, atraumatic. Eyes: Pupils equal, round and reactive to light. Neck: Normal inspection. Neck supple. Skin: Skin warm and dry. Normal skin turgor. No rashes. Extremities: No lower extremity edema. No joint swelling. Hematoma noted over the ulnar aspect of the right hand. No obvious deformity. Normal full ROM to flexion and extension of all digits. NV intact distally. Capillary refill <2 seconds throughout UE b/l. tenderness and early ecchymosis over the thenar eminence Neuro/psych: Oriented X 3. No motor deficit. No sensory deficit. CN II-XII intact. Medical Decision Making Medical Decision Making [facility] Narrative: 37 year old female with no significant past medical history, right hand dominant, presenting to the ED today with right hand/ wrist pain s/p hitting her right hand on her rear view mirror after pulling her purse strap out of her car door. Vital signs stable. Physical exam notable for ecchymosis over the ulnar aspect of the right hand without deformity, skin intact, full ROM to flexion and extension of the right digits, NV intact distally. Plan: xray right hand Xray of right hand unremarkable. Likely right hand contusion given ecchymosis and mild pain on ROM. Will place patient in velcro wrist splint and recommend anti-inflammatorys PRN. She is stable for discharge and would like to return to work today without restrictions. Discussed out patient follow up with her PCP and return precautions. Patient expressed understanding with discharge plan. Differential Diagnosis Differential Diagnoses: The differential diagnosis associated with the presentation includes hand fracture, contusion, open fracture, hematoma Independent Interpretation I performed an independent interpretation of an: Plain X-Ray Interpretation: Xray right hand without fracture, agree with radiologists interpretation. Radiology Impression Discussion of test interpretation with radiology: I have reviewed the radiologist's reading. Radiologist Impression: XR hand RT min 3V IMPRESSION: Unremarkable right hand. External Record Review External record reviewed: Prior outpatient labs Prescription Management I considered prescription management with: Pain Medication Procedures Orthopedic Splinting/Casting Injury #1: Side: right Upper Extremity Injury Location: wrist and hand Upper Extremity Immobilizer: wrist splint Critical Care Time Critical Care Time Critical Care Time: No Discharge Plan Discharge Clinical Impression: Contusion of hand, right Patient Disposition: Home, Self-Care Instructions: R.I.C.E. Treatment (ED) Additional Instructions: The xrays of your right hand were reassuring and did not show evidence of a fracture. You have been provided with a wrist splint. Wear this as needed for stability. Take tylenol as needed for pain. Rest, ice, and elevated the right hand. Can return to work without restrictions. Follow up with your PCP as needed. Prescriptions: No Action penicillin V potassium 500 mg tablet 500 mg PO BID 10 Days Qty: 20 0RF nkzqsciwxr-oyumvhgifuwqi-zjne [Fioricet] 50-300-40 mg capsule 1 cap PO TID PRN (Reason: headache) Qty: 15 0RF Referrals: Diane Maddox [employer] DYER [Primary Care Provider] - Stand Alone Forms: Work/School Release Interventions: ED Discharge Assessment Last Done: 09/08/22 11:38 Discharge Date/Time: 09/08/22 11:39
== END 2022-09-08 11:39 | disposition home or self-care (01) ==
PROVIDERS: Emergency Provider Emergency Medicine Emergency Medical Services; PCP Nurse Practitioner Family
DX: S60.221A Contusion of right hand, initial encounter (principal); M79.641 Pain in right hand; Y29.XXXA Contact with blunt object, undetermined intent, initial encounter; Y93.9 Activity, unspecified; Y92.810 Car as the place of occurrence of the external cause; Y99.9 Unspecified external cause status
CPT/HCPCS: 73130; 99284

== ENCOUNTER 2022-10-18 20:27 | Emergency (ER) | payer OTHER, SELFPAY ==
--- NOTE | ~2022-10-18 | CT_ITS ---
EXAMINATION: CT ABDOMEN AND PELVIS WITHOUT CONTRAST CLINICAL INFORMATION: Abdominal pain. COMPARISON: 09/08/2019 TECHNIQUE: Multidetector volumetric imaging was performed from the superior aspect of the liver through the pubic symphysis. Sagittal and coronal reformatted images were obtained on the technologist's workstation. This CT examination was performed using dose optimization techniques as appropriate, variously including the following: *Automated exposure control *Adjustment of mA and/or kV according to patient size (this includes techniques or standardized protocols for targeted exams where dose is matched to indication/reason for exam; i.e. extremities or head) *Use of iterative reconstruction technique DLP: 531 mGy-cm FINDINGS: LUNG BASES: The visualized lung bases are unremarkable. LIVER, GALLBLADDER, AND BILIARY TREE: The liver is normal in size, shape, and attenuation. No focal hepatic lesion or biliary ductal dilatation is present. The gallbladder is unremarkable with no evidence of radiopaque gallstones, gallbladder wall thickening, or obvious pericholecystic inflammatory changes. PANCREAS: Unremarkable. SPLEEN: Unremarkable. ADRENAL GLANDS: Unremarkable. KIDNEYS AND URETERS: The kidneys are normal in size, shape, and attenuation. No hydronephrosis, hydroureter, or calculi seen. No perinephric stranding. BLADDER: Unremarkable. GASTROINTESTINAL TRACT: The small and large bowel are unremarkable. The appendix is unremarkable. ABDOMINAL WALL: There is a minimal umbilical hernia containing fat. LYMPH NODES: Normal. VASCULAR: Unremarkable. PELVIC VISCERA: Unremarkable. OSSEOUS STRUCTURES: Unremarkable. CT/CT abdomen pelvis wo IV con IMPRESSION: No significant abnormality. Fleischner guidelines were followed.
[2022-10-18 21:11] VITALS: BP 131/84; PULSE 66; RESP 20; TEMP 36.7; O2SAT 98; BMI 28.7
--- NOTE | 2022-10-18 21:51 | MHC.EDTECH ---
PATIENT UNABLE TO GIVE URINE SAMPLE AT THIS TIME .
[2022-10-18 21:53] LABS: Hematocrit 37.1 % (37.0-47.0); Hemoglobin 12.1 g/dl (12.0-16.0); Mean Corpuscular HGB Conc 32.6 g/dl (31.0-35.0); Mean Corpuscular Volume 92.1 fL (80.0-98.0); Mean Platelet Volume 9.5 fL (9.4-12.3); Platelet Count 309 X10*3/uL (160-400); Red Blood Count 4.03 X10*6/uL (4.20-5.50); Red Cell Distribution Width 13.4 % (11.0-16.0); White Blood Count 6.3 X10*3/uL (4.8-10.8)
[2022-10-18 22:05] LABS: Alanine Aminotransferase 11 U/L (0-31); Albumin Level 4.4 g/dL (3.5-5.0); Alkaline Phosphatase 78 U/L (39-117); Anion Gap 10 (12-20); Aspartate Amino Transferase 15 U/L (5-31); Bilirubin Total 0.4 mg/dL (0.0-1.0); Blood Urea Nitrogen 19 mg/dL (9-16); Calcium 9.8 mg/dL (8.4-10.2); Carbon Dioxide 27 mmol/L (22-29); Chloride 107 mmol/L (96-108); Creatinine Clr Calc Pharmacy 103.6; Estimated Glomerular Filt Rate > 60; Glucose Random 96 mg/dL (60-115); Lipase 25 U/L (8-78); Potassium 4.3 mmol/L (3.3-5.1); Sodium 140 mmol/L (135-145); Total Protein 7.7 g/dL (6.5-8.0)
[2022-10-18 23:10] LABS: Appearance Urine Clear; Color Urine Yellow; Glucose Urine UA Negative (Negative); Leukocyte Esterase Urine Trace (Negative); Nitrite Urine Negative (Negative); PH 5.5 (5.0-9.0); Specific Gravity - Urine >= 1.030 (1.005-1.025); UMIC TRIGGER UACC YES; Urine Blood Negative (Negative); Urine Ketones Negative (Negative); Urine Protein Trace mg/dL (Neg-Trace)
[2022-10-18 23:11] LABS: UPreg QC Valid YES; Urine Pregnancy NEGATIVE (NEGATIVE)
[2022-10-18 23:12] LABS: Bacteria Urine 1+ (None Seen); Hyaline Casts Urine 0-2 /LPF (0-2); RBC Urine 0-2 /HPF (0-2); UACC Culture Trigger YES
[2022-10-19 01:02] VITALS: BP 122/78; PULSE 58; RESP 17; O2SAT 99
--- NOTE | 2022-10-19 01:23 | ED_ITS ---
HPI - Abdominal Pain General Chief Complaint: Abdominal Pain Stated Complaint: R upper abd pain/N&V Time Seen by Provider: 10/19/22 01:14 Source: patient and family Mode of arrival: ambulatory Limitations: no limitations History of Present Illness HPI narrative: 37-year-old female came in for evaluation of right-sided abdominal pain that started about 19:00 last night after having late lunch, pain is localized to the right side of the abdomen upper and lower, no nausea, no vomiting, no diarrhea, no exposure to bad food, no sick contacts, no recent travel, no recent use of antibiotic, no chance of being s/p tubal ligation. No dysuria, no frequency urination, no hematuria, no fever, no chills. Past surgical history significant for tubal ligation. Normal bowel movement yesterday with passing flatus. Related Data Previous Rx's Medication Instructions Recorded penicillin V potassium 500 mg 500 mg PO BID 10 days #20 tabs 05/26/22 tablet nmpwxudyyy-pymszdeapipcw-qgovdecv 1 cap PO TID PRN headache #15 caps 08/28/22 50 mg-300 mg-40 mg capsule (Fioricet) nitrofurantoin 100 mg PO BID #14 caps 10/19/22 monohydrate/macrocrystals 100 mg capsule (Macrobid) Allergies Allergy/AdvReac Type Severity Reaction Status Date / Time No Known Allergies Allergy Verified 05/26/22 14:09 Review of Systems Review of Systems All other systems are reviewed and are negative Constitutional: Reports as per HPI and Reports no additional constitutional complaints Eyes: Reports as per HPI and Reports no additional eye complaints Reports system reviewed and no additional complaints, except as documented Cardiovascular: Reports as per HPI and Reports no additional cardiovascular complaints Respiratory: Reports as per HPI and Reports no additional respiratory complaints Gastrointestinal: Reports as per HPI and Reports no additional gastrointestinal complaints Genitourinary: Reports no additional female genitourinary complaints Musculoskeletal: Reports no additional musculoskeletal complaints Skin/Breast: Reports system reviewed and no additional complaints, except as docu Psychiatric: Reports no additional psychiatric complaints Endocrine: Reports no additional endocrine complaints Hematologic/Lymphatic: Reports no additional hematologic/lymphatic complaints Allergic/Immunologic: Reports no additional allergic/immunologic complaints Reports system reviewed and no additional complaints, except as documented and Reports Abnormal speech present [facility] Social History Social History Alcohol intake: current Alcohol intake frequency: holidays/special occasions only Smoked in Last 30 Days: No Use of substances other than those prescribed or required for medical reasons: No Advance Directives: No Advance Directives Information Provided: No Patient : No Physical Exam ED Vital Signs: Vital Signs - 24 hr 10/18/22 21:11 10/19/22 01:02 Temperature 98.0 F Pulse Rate 66 58 Respiratory Rate 20 17 Blood Pressure 131/84 122/78 Pulse Oximetry 98 99 Oxygen Delivery Method Room Air Room Air BMI result Body Mass Index 28.7 Vital signs have been reviewed as appeared to be correct. Blood pressure normal. Heart rate normal. Respiration rate normal. Temperature normal. Ox ygen saturation normal. Appearance: Alert. Oriented X3. No acute distress. Head: Normal external exam. Normocephalic. Atraumatic. No Best signs noted. No raccoon eyes noted Eyes: PERRLA. EOMI. Conjunctiva and sclera normal. Eyelids normal. ENT: TM's Normal. Pharynx normal. Uvula midline. Moist mucous membranes. No trismus noted. No drooling noted. No muffled voice noted. Neck: Normal inspection. Neck supple. FROM. No adenopathy. Thyroid Normal. No meningeal signs. No neck mass noted. CVS: Normal heart rate and rhythm. Heart sound normal. No murmurs noted. Pulses normal throughout. Respiratory: No respiratory distress. Painless inspiration. Breath sounds n ormal. No wheezes/rales/rhonchi noted. Chest nontender. No accessory muscle usage noted or decreased air movement noted. Abdomen: Right upper quadrant tenderness, right lower quadrant tenderness, no guarding, no rebound tenderness. Bowel sounds normal in all 4 quadrants. No distention noted. No organomegaly noted. No visible injury noted. Back: Right CVA tenderness. Full range of motion noted. Skin: Skin warm and dry. Normal skin color. Normal skin turgor. No rashes/lesions/lacerations noted. Extremities: No lower extremity edema. Extremities exhibit normal range of motion. Extremities nontender. Neuro: Oriented X 3. Cranial nerve exam: II-XII are grossly intact No motor deficit. No sensory deficit. Reflexes normal. Course Course Course Narrative: 37-year-old female came in with right-sided abdominal pain, exam is significant for right CVA tenderness, CT of the abdomen pelvis showed no obstructing ureteric stone, no acute appendicitis, patient has unremarkable labs including LFTs. Will start the patient on Macrobid for mild UTI. Medical Decision Making Differential Diagnosis Differential Diagnoses: The differential diagnosis associated with the presentation includes (Acute appendicitis, acute cholecystitis, pancreatitis, colitis, kidney stone, pyelonephritis, UTI, , electrolyte abnormality, severe anemia.) Admission/Observation Consideration of admission/observation: Escalation of care including admission/observation considered Lab Data MDM Lab Attestation statement: I reviewed the patient's lab results. 10/18/22 21:43 10/18/22 21:43 Labs: Lab Results 10/18/22 10/18/22 10/18/22 Range/Units 21:43 21:43 23:02 WBC 6.3 (4.8-10.8) X10*3/uL RBC 4.03 L (4.20-5.50) X10*6/uL Hgb 12.1 (12.0-16.0) g/dl Hct 37.1 (37.0-47.0) % MCV 92.1 (80.0-98.0) fL MCH 30.0 (27.0-33.0) pg MCHC 32.6 (31.0-35.0) g/dl RDW 13.4 (11.0-16.0) % Plt Count 309 (160-400) X10*3/uL MPV 9.5 (9.4-12.3) fL Absolute Nucleated RBC 0.000 (0.0-0.012) X10*3/uL Nucleated RBC % (auto) 0.0 (0.0-0.2) /100WBC Sodium 140 (135-145) mmol/L Potassium 4.3 D (3.3-5.1) mmol/L Chloride 107 (96-108) mmol/L Carbon Dioxide 27 (22-29) mmol/L Anion Gap 10 L (12-20) BUN 19 H (9-16) mg/dL Creatinine 0.70 (0.5-1.4) mg/dL Estim Creat Clear Calc 103.6 Estimated GFR > 60 Random Glucose 96 (60-115) mg/dL Calcium 9.8 (8.4-10.2) mg/dL Total Bilirubin 0.4 (0.0-1.0) mg/dL AST 15 (5-31) U/L ALT 11 (0-31) U/L Alkaline Phosphatase 78 (39-117) U/L Total Protein 7.7 (6.5-8.0) g/dL Albumin 4.4 (3.5-5.0) g/dL Lipase 25 (8-78) U/L Urine Color Yellow Urine Appearance Clear Urine pH 5.5 (5.0-9.0) Ur Specific [place] >= 1.030 H (1.005-1.025) Urine Protein Trace (Neg-Trace) mg/dL Urine Glucose (UA) Negative (Negative) mg/dL Urine Ketones Negative (Negative) mg/dL Urine Blood Negative (Negative) Urine Nitrite Negative (Negative) Ur Leukocyte Esterase Trace H (Negative) Urine RBC 0-2 (0-2) /HPF Urine WBC 6-10 H (0-5) /HPF Ur Squamous Epith Cells 6-10 (0-2) /HPF Urine Bacteria 1+ (None Seen) Hyaline Casts 0-2 (0-2) /LPF Urine Test (NEGATIVE) 10/18/22 Range/Units 23:02 WBC (4.8-10.8) X10*3/uL RBC (4.20-5.50) X10*6/uL Hgb (12.0-16.0) g/dl Hct (37.0-47.0) % MCV (80.0-98.0) fL MCH (27.0-33.0) pg MCHC (31.0-35.0) g/dl RDW (11.0-16.0) % Plt Count (160-400) X10*3/uL MPV (9.4-12.3) fL Absolute Nucleated RBC (0.0-0.012) X10*3/uL Nucleated RBC % (auto) (0.0-0.2) /100WBC Sodium (135-145) mmol/L Potassium (3.3-5.1) mmol/L Chloride (96-108) mmol/L Carbon Dioxide (22-29) mmol/L Anion Gap (12-20) BUN (9-16) mg/dL Creatinine (0.5-1.4) mg/dL Estim Creat Clear Calc Estimated GFR Random Glucose (60-115) mg/dL Calcium (8.4-10.2) mg/dL Total Bilirubin (0.0-1.0) mg/dL AST (5-31) U/L ALT (0-31) U/L Alkaline Phosphatase (39-117) U/L Total Protein (6.5-8.0) g/dL Albumin (3.5-5.0) g/dL Lipase (8-78) U/L Urine Color Urine Appearance Urine pH (5.0-9.0) Ur Specific [place] (1.005-1.025) Urine Protein (Neg-Trace) mg/dL Urine Glucose (UA) (Negative) mg/dL Urine Ketones (Negative) mg/dL Urine Blood (Negative) Urine Nitrite (Negative) Ur Leukocyte Esterase (Negative) Urine RBC (0-2) /HPF Urine WBC (0-5) /HPF Ur Squamous Epith Cells (0-2) /HPF Urine Bacteria (None Seen) Hyaline Casts (0-2) /LPF Urine Test NEGATIVE (NEGATIVE) Independent Interpretation I performed an independent interpretation of an: CT Scan (Abdomen and pelvis: No acute intra abdominal pathology.) Radiology Impression Discussion of test interpretation with radiology: I have reviewed the radiologist's reading. Discharge Plan Discharge Clinical Impression: UTI (urinary tract infection) Patient Disposition: Home, Self-Care Instructions: Urinary Tract Infection in Women (ED) Prescriptions: New nitrofurantoin monohyd/m-cryst [Macrobid] 100 mg capsule 100 mg PO BID Qty: 14 0RF Rx Instructions: must administer with a meal/food No Action penicillin V potassium 500 mg tablet 500 mg PO BID 10 Days Qty: 20 0RF fwflrkrkzu-zezhcnudcvkkx-oydh [Fioricet] 50-300-40 mg capsule 1 cap PO TID PRN (Reason: headache) Qty: 15 0RF Referrals: Diane Maddox NP [Primary Care Provider] -
[2022-10-19 03:49] VITALS: BP 117/72; PULSE 55; RESP 16; O2SAT 99
[2022-10-19 05:21] VITALS: BP 122/81; PULSE 58; RESP 18; O2SAT 98
== END 2022-10-19 05:25 | disposition home or self-care (01) ==
PROVIDERS: Emergency Provider Emergency Medicine; PCP Nurse Practitioner Family
DX: N39.0 Urinary tract infection, site not specified (principal)
CPT/HCPCS: 36415; 74176; 80053; 81001; 81025; 83690; 85027; 87086; 99284

== ENCOUNTER 2022-12-04 09:54 | Emergency (ER) | payer OTHER, SELFPAY ==
--- NOTE | ~2022-12-04 | XR_ITS ---
EXAMINATION: XR HAND, LEFT CLINICAL INFORMATION: Fifth digit limited range of motion. COMPARISON: None available. TECHNIQUE: PA, lateral, and oblique views of the left hand. FINDINGS: Nondisplaced transverse fracture through the proximal shaft of the fifth distal phalanx. XR/XR hand LT min 3V IMPRESSION: Nondisplaced transverse extra-articular fracture fifth distal phalanx.
[2022-12-04 10:00] VITALS: BP 154/94; PULSE 80; RESP 18; TEMP 36.7; O2SAT 99; BMI 30.8
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
== END 2022-12-04 11:32 | disposition home or self-care (01) ==
PROVIDERS: Emergency Provider Emergency Medicine; PCP Nurse Practitioner Family
DX: S62.637A Displaced fracture of distal phalanx of left little finger, initial encounter for closed fracture (principal); M79.645 Pain in left finger(s); X58.XXXA Exposure to other specified factors, initial encounter; Y93.9 Activity, unspecified; Y92.9 Unspecified place or not applicable; Y99.9 Unspecified external cause status
CPT/HCPCS: 29130; 73130; 99282; 99283

== ENCOUNTER 2022-12-09 10:32 | Outpatient (AMB) | payer OTHER, SELFPAY ==
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
[2022-12-09 10:43] VITALS: BMI 30.7
== END 2022-12-09 11:07 | disposition home or self-care (01) ==
PROVIDERS: PCP Nurse Practitioner Family; Visit Provider Physician Assistant
DX: S62.667A Nondisplaced fracture of distal phalanx of left little finger, initial encounter for closed fracture (principal)
CPT/HCPCS: 99203

== ENCOUNTER → 2022-12-09 10:32 | Outpatient (BNVA) | payer OTHER, SELFPAY | PROVIDERS: PCP Nurse Practitioner Family; Visit Provider Physician Assistant | DX: S62.667A Nondisplaced fracture of distal phalanx of left little finger, initial encounter for closed fracture (principal); Y04.0XXA Assault by unarmed brawl or fight, initial encounter; Y93.9 Activity, unspecified; Y92.9 Unspecified place or not applicable; Y99.9 Unspecified external cause status | CPT/HCPCS: 99202 ==

== ENCOUNTER 2023-03-06 08:19 | Outpatient (REF) | payer OTHER, SELFPAY ==
--- NOTE | ~2023-03-06 | XR_ITS ---
EXAMINATION: XR HAND, LEFT CLINICAL INFORMATION: Pain in left hand COMPARISON: Left hand 12/04/2022 TECHNIQUE: PA, lateral, and oblique views of the left hand. FINDINGS: There is a mildly displaced comminuted transverse fracture through the proximal shaft of the distal phalanx of the little finger. There is interval displacement and widening of the fracture cleft. No significant callus formation. Joint spaces are within normal limits. XR/XR hand LT min 3V IMPRESSION: Mildly displaced comminuted transverse fracture through the proximal shaft of the distal phalanx of the little finger.
== END 2023-03-06 08:20 | disposition home or self-care (01) ==
LOC: HO.HOSX 08:19
PROVIDERS: Visit Provider Physician Assistant
DX: S62.667A Nondisplaced fracture of distal phalanx of left little finger, initial encounter for closed fracture (principal)
CPT/HCPCS: 73130; 99212

== ENCOUNTER 2023-03-06 09:26 | Outpatient (AMB) | payer OTHER, SELFPAY ==
[2023-03-06 09:29] VITALS: BMI 30.7
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
== END 2023-03-06 10:18 | disposition home or self-care (01) ==
PROVIDERS: PCP Nurse Practitioner Family; Visit Provider Physician Assistant
DX: S62.669A Nondisplaced fracture of distal phalanx of unspecified finger, initial encounter for closed fracture (principal)
CPT/HCPCS: 99213

== ENCOUNTER 2023-10-07 22:32 | Emergency (ER) | payer OTHER, SELFPAY ==
--- NOTE | ~2023-10-07 | CT_ITS ---
EXAMINATION: CT ABDOMEN PELVIS WITH IV CONTRAST CLINICAL INFORMATION: LLQ pain/tenderness R/O diverticulitis COMPARISON: CT abdomen and pelvis 09/08/2019. TECHNIQUE: IV contrast and CT of the abdomen and pelvis. Intravenous Contrast: Omnipaque [address] examination was performed using dose optimization techniques as appropriate, variously including the following: *Automated exposure control *Adjustment of mA and/or kV according to patient size (this includes techniques or standardized protocols for targeted exams where dose is matched to indication/reason for exam; i.e. extremities or head) *Use of iterative reconstruction technique DLP: 622 mGy-cm FINDINGS: The lung bases are clear. The liver, gallbladder and biliary system are normal in appearance. Normal appearance of the pancreas, spleen, adrenal glands and kidneys. Urinary bladder is decompressed. Normal appearance of the uterus. No adnexal lesions. Moderate diverticulosis of the sigmoid colon is identified. No associated inflammatory changes noted. No inflammatory changes of the sigmoid mesentery visualized. Normal appearance of the appendix. No free intraperitoneal fluid or gas collections. No intestinal dilatation. Normal appearance of the stomach. No abdominal wall hernias. Normal caliber of the abdominal aorta. No abdominal or pelvic lymphadenopathy. No suspicious skeletal lesions noted. CT/CT abdomen pelvis w IV con IMPRESSION: *No acute abnormalities identified. *Moderate sigmoid diverticulosis. No associated inflammatory changes to suggest acute diverticulitis. No free intraperitoneal fluid or gas collections. Electronically signed by: Simone Boswell MD 10/08/2023 01:17 AM EDT
[2023-10-07 22:35] VITALS: BP 139/84; PULSE 63; RESP 20; TEMP 35.5; O2SAT 100; BMI 32.3
[2023-10-07 23:58] LABS: MANUAL DIFF FLAG NO
[2023-10-07 23:59] LABS: Appearance Urine Clear; Basophils Percent Auto 0.3 % (0-2); Color Urine Yellow; Eosinophils Absolute Auto 0.2 X10*3/uL (0.0-0.4); Eosinophils Percent Auto 2.2 % (0-4); Glucose Urine UA Negative (Negative); Hematocrit 36.1 % (37.0-47.0); Hemoglobin 11.9 g/dl (12.0-16.0); Leukocyte Esterase Urine Negative (Negative); Lymphocytes Absolute Auto 2.7 X10*3/uL (1.2-4.9); Lymphocytes Percent Auto 39.5 % (20-40); Mean Corpuscular Hemoglobin 30.3 pg (27.0-33.0); Mean Corpuscular Volume 91.9 fL (80.0-98.0); Mean Platelet Volume 9.1 fL (9.4-12.3); Monocytes Absolute Auto 0.4 X10*3/uL (0.1-1.2); Monocytes Percent Auto 5.6 % (2-11); Neutrophils Absolute Auto 3.5 x10*3/uL (2.0-8.3); Neutrophils Percent Auto 52.4 % (45-73); Nitrite Urine Negative (Negative); Platelet Count 304 X10*3/uL (160-400); Red Blood Count 3.93 X10*6/uL (4.20-5.50); Red Cell Distribution Width 14.6 % (11.0-16.0); Specific Gravity - Urine 1.025 (1.005-1.025); Urine Blood Negative (Negative); Urine Ketones Negative (Negative); Urine Protein Negative (Neg-Trace); White Blood Count 6.8 X10*3/uL (4.8-10.8)
[2023-10-08 00:02] LABS: Bacteria Urine None Seen (None Seen); Hyaline Casts Urine 0-2 /LPF (0-2); RBC Urine 0-2 /HPF (0-2); WBC Urine 0-5 /HPF (0-5)
[2023-10-08 00:14] LABS: Alanine Aminotransferase 11 U/L (0-31); Albumin Level 4.3 g/dL (3.5-5.0); Alkaline Phosphatase 78 U/L (39-117); Anion Gap 12 (12-20); Aspartate Amino Transferase 14 U/L (5-31); Bilirubin Total 0.3 mg/dL (0.0-1.0); Blood Urea Nitrogen 18 mg/dL (9-16); Calcium 9.4 mg/dL (8.4-10.2); Carbon Dioxide 28 mmol/L (22-29); Chloride 105 mmol/L (96-108); Creatinine Clr Calc Pharmacy 119.4; Estimated Glomerular Filt Rate > 60; Glucose Random 98 mg/dL (60-115); Lipase 29 U/L (8-78); Potassium 3.8 mmol/L (3.3-5.1); Sodium 141 mmol/L (135-145); Total Protein 7.4 g/dL (6.5-8.0)
--- NOTE | 2023-10-08 00:14 | ED.ABDPAIN ---
HPI - Abdominal Pain General Chief Complaint: Abdominal Pain Stated Complaint: left rib pain Time Seen by Provider: 10/08/23 00:09 Source: patient Mode of arrival: EMS Limitations: no limitations History of Present Illness ED Provider: Dr. Adan English HPI narrative: 38-year-old female with no significant past medical history, bilateral tubal ligation who presents emergency department for evaluation of abdominal pain. Patient states that yesterday after eating dinner she developed pain in her stomach. She points to her epigastric area and left side of her abdomen when asked to localize the pain she states that the pain eventually resolved. She states that today after you lunch around 15:00 hours the pain came back. She states the pain started in her chest then moved down to her left side of her abdomen. She states the pain is a constant, pounding pain which is 9/10 at its worst. She does have a history of diverticulitis but she states her diverticulitis pain was different than this pain. Patient states she had 2 episodes of diarrhea. She has had associated nausea with no vomiting. She denied fever or chills. Related Data Home Medications ?Medication ?Instructions ?Recorded ?Confirmed albuterol sulfate 90 mcg/actuation 2 puff inhalation Q6H PRN wheezing 12/09/22 aerosol inhaler (Ventolin HFA) epinephrine 0.3 mg/0.3 mL 0.3 ml IM ONCE PRN 12/09/22 injection, auto-injector Previous Rx's ?Medication ?Instructions ?Recorded acetaminophen 500 mg tablet 1,000 mg (2 x 500 mg) PO Q6H PRN 10/08/23 (Tylenol Extra Strength) fever or pain #20 tabs amoxicillin 875 mg-potassium 1 tab PO Q12H 7 days #14 tabs 10/08/23 clavulanate 125 mg tablet ibuprofen 400 mg tablet 400 mg PO TID PRN fever or pain 10/08/23 #30 tabs morphine 15 mg immediate release 15 mg PO Q6H PRN pain #10 tabs 10/08/23 tablet ondansetron 4 mg disintegrating 4 mg PO Q6-8H PRN nausea and 10/08/23 tablet vomiting #14 tabs Allergies Allergy/AdvReac Type Severity Reaction Status Date / Time No Known Allergies Allergy Verified 10/07/23 22:39 Review of Systems Review of Systems Yes all other systems are reviewed and are negative PMFSH Past Medical History [facility] Narrative: Social history: She denies tobacco, alcohol and drug use Social History Social History Alcohol intake: current Alcohol intake frequency: holidays/special occasions only Smoked in Last 30 Days: No Use of substances other than those prescribed or required for medical reasons: No Advance Directives: No Advance Directives Information Provided: No Do you have a plan to hurt others: No Plan Patient : No Current occupational status: employed Current occupation: Allergy dept/ rt hand Physical Exam ED Vital Signs: Vital Signs - 24 hr 10/07/23 22:35 10/08/23 01:31 Temperature 96 F L 97.9 F Pulse Rate 63 59 Respiratory Rate 20 18 Blood Pressure 139/84 114/55 L Pulse Oximetry 100 97 Oxygen Delivery Method Room Air Room Air BMI result Body Mass Index 32.3 Vital signs revealed an elevated blood pressure of 139/84 otherwise unremarkable Exam: General: Awake, alert in no distress Head: Normocephalic, atraumatic EENT: PERRL, Lids normal, sclera normal, conjunctiva normal, nose normal , ears normal, throat without erythema or exudates Neck: Supple, no adenopathy Lung: breath sounds symmetric, no wheezing, rales or rhonchi Chest: symmetric movement, nontender Heart: regular rate and rhythm, normal S1, S2 no murmurs or rubs Abdomen: soft, moderate to severe left lower quadrant tenderness, no voluntary or involuntary guarding, no rebound, normal bowel sounds Back: no vertebral tenderness, no CVAT Extremities: no deformities, moves all extremities symmetrically Neuro: Awake, alert, oriented, normal speech, cranial nerves intact, moves all extremities symmetrically Psych: Pleasant, cooperative Medical Decision Making Medical Decision Making [facility] Narrative: 38-year-old female with no significant past medical history, bilateral tubal ligation who presents emergency department for evaluation of abdominal pain x2 days, pain in his located in her left lower quadrant and is moderate to severe in intensity associated with nausea without vomiting and 2 episodes of diarrhea. Patient does have history of diverticulitis but states this pain is different than her diverticulitis pain. Vital signs revealed an elevated blood pressure. Abdominal exam revealed moderate to severe left lower quadrant tenderness. Differential diagnosis: ?Includes but is not limited to pancreatitis, diverticulitis, gastritis, peptic ulcer disease, renal colic, ureteral stone, urinary tract infection Following evaluation was ordered: CBC, CMP, lipase, urinalysis, CT scan of the abdomen pelvis with IV contrast Patient was initially treated with the following: IV insert, Toradol 15 mg IV, Zofran 4 mg IV, LR 1 L IV Course: 01:30 My interpretation patient's laboratory evaluation is as follows: CBC revealed a normocytic anemia with an H&H of 11.9 and 36.1. White blood cell count was normal 6800. BUN elevated 18. LFTs were normal. Lipase was normal. Urinalysis was negative. Patient's CT scan revealed diverticulosis with no diverticulitis. Given the patient's presentation however and her right lower quadrant tenderness I suspect that she does have early diverticulitis I did discuss this with her. The patient will be treated with Augmentin 875/125 q.12 hours x7 days. She was also prescribed Tylenol and ibuprofen and for pain not relieved by these medications she was prescribed morphine. Patient was also prescribed Zofran 4 mg ODT. She was given printed and verbal instructions discharged home. Admission/Observation Consideration of admission/observation: Escalation of care including admission/observation considered Lab Data MDM Lab Attestation statement: I reviewed the patient's lab results. 10/07/23 23:51 10/07/23 23:51 Labs: Lab Results 10/07/23 Range/Units 23:51 WBC 6.8 (4.8-10.8) X10*3/uL RBC 3.93 L (4.20-5.50) X10*6/uL Hgb 11.9 L (12.0-16.0) g/dl Hct 36.1 L (37.0-47.0) % MCV 91.9 (80.0-98.0) fL MCH 30.3 (27.0-33.0) pg MCHC 33.0 (31.0-35.0) g/dl RDW 14.6 (11.0-16.0) % Plt Count 304 (160-400) X10*3/uL MPV 9.1 L (9.4-12.3) fL Immature Gran % (Auto) 0.0 (0.0-0.4) % Neut % (Auto) 52.4 (45-73) % Lymph % (Auto) 39.5 (20-40) % [place] % (Auto) 5.6 (2-11) % Eos % (Auto) 2.2 (0-4) % Baso % (Auto) 0.3 (0-2) % Lymph # (Auto) 2.7 (1.2-4.9) X10*3/uL [place] # (Auto) 0.4 (0.1-1.2) X10*3/uL Eos # (Auto) 0.2 (0.0-0.4) X10*3/uL Baso # (Auto) 0.0 (0.0-0.2) X10*3/uL Abs Immat Gran (auto) 0.00 (0.00-0.03) X10*3/uL Absolute Neuts (auto) 3.5 (2.0-8.3) x10*3/uL Absolute Nucleated RBC 0.000 (0.0-0.012) X10*3/uL Nucleated RBC % (auto) 0.0 (0.0-0.2) /100WBC Sodium 141 (135-145) mmol/L Potassium 3.8 (3.3-5.1) mmol/L Chloride 105 (96-108) mmol/L Carbon Dioxide 28 (22-29) mmol/L Anion Gap 12 (12-20) BUN 18 H (9-16) mg/dL Creatinine 0.71 (0.5-1.4) mg/dL Estim Creat Clear Calc 119.4 Estimated GFR > 60 Random Glucose 98 (60-115) mg/dL Calcium 9.4 (8.4-10.2) mg/dL Total Bilirubin 0.3 (0.0-1.0) mg/dL AST 14 (5-31) U/L ALT 11 (0-31) U/L Alkaline Phosphatase 78 (39-117) U/L Total Protein 7.4 (6.5-8.0) g/dL Albumin 4.3 (3.5-5.0) g/dL Lipase 29 (8-78) U/L Urine Color Yellow Urine Appearance Clear Urine pH 6.0 (5.0-9.0) Ur Specific [place] 1.025 (1.005-1.025) Urine Protein Negative (Neg-Trace) mg/dL Urine Glucose (UA) Negative (Negative) mg/dL Urine Ketones Negative (Negative) mg/dL Urine Blood Negative (Negative) Urine Nitrite Negative (Negative) Ur Leukocyte Esterase Negative (Negative) Urine RBC 0-2 (0-2) /HPF Urine WBC 0-5 (0-5) /HPF Ur Squamous Epith Cells 3-5 (0-2) /HPF Urine Bacteria None Seen (None Seen) Hyaline Casts 0-2 (0-2) /LPF Radiology Impression Discussion of test interpretation with radiology: I have reviewed the radiologist's reading. Radiologist Impression: CT abdomen pelvis w IV con IMPRESSION: * No acute intra-abdominal abnormality. * Scattered colonic diverticulosis, no findings of diverticulitis. * Large-volume stool is seen within the large colon. Dictated By: Jena Perez MD Independent Historian Clinical information obtained from an independent historian. History obtained from or confirmed by: Other (Daughter) Prescription Management I considered prescription management with: Pain Medication and Antibiotic Medications Administered Discontinued Medications Generic Name Dose Route Start Last Admin Trade Name Freq PRN Reason Stop Dose Admin Lactated Ringer's 1,000 mls @ 999 mls/hr 10/08/23 00:25 10/08/23 01:12 Lr IV 10/08/23 01:25 999 mls/hr .Q1H1M STA Administration Iohexol 85 ml 10/08/23 01:00 10/08/23 01:01 Iohexol 350 Mg/Ml 100 Ml Infus..Btl IV 10/08/23 01:01 85 ml ONCE ONE Administration Ketorolac Tromethamine 15 mg 10/08/23 00:25 10/08/23 01:11 Ketorolac Tromethamine 15 Mg/Ml Vial IVPUSH 10/08/23 00:26 15 mg ONCE STA Administration Ondansetron HCl 4 mg 10/08/23 00:25 10/08/23 01:12 Ondansetron Hcl 4 Mg/2 Ml Vial IVPUSH 10/08/23 00:26 4 mg ONCE ONE Administration Discharge Plan Discharge Clinical Impression: Diverticulitis Patient Disposition: Home, Self-Care Instructions: Diverticulitis (ED) Additional Instructions: Your blood work was unremarkable. Your CT scan did reveal diverticulosis but no diverticulitis. However on your exam you have significant tenderness on the left lower part of your abdomen and I am concerned that you may have early diverticulitis therefore I am going to treat you with Augmentin 875/125, 1 pill every 12 hours for 7 days. Take ibuprofen 200 mg pills, 2 pills every 6 hours as needed for pain. Take Tylenol (acetaminophen) 2 pills every 6 hours as needed for pain. For pain not relieved by ibuprofen or Tylenol take morphine 15 mg pills, 1 pill every 6 hours as needed for pain. This medication will make you sleepy, do not drive or work while taking this medication. Morphine is a narcotic medication and can be addicting. If you are concerned about addiction you can ask the pharmacist for less pills or do not get this prescription filled. Take Zofran ODT 4 mg pills, 1 pill dissolved in your mouth every 8 hours as needed for nausea and vomiting. Follow-up with your doctor in 2 days. Please return to the emergency department if your symptoms get worse or if you develop any symptoms that are concerning to you. Prescriptions: New amoxicillin-pot clavulanate 875-125 mg tablet 1 tab PO Q12H 7 Days Qty: 14 0RF acetaminophen [Tylenol Extra Strength] 500 mg tablet 1,000 mg PO Q6H PRN (Reason: fever or pain) Qty: 20 0RF ibuprofen 400 mg tablet 400 mg PO TID PRN (Reason: fever or pain) Qty: 30 0RF morphine 15 mg tablet 15 mg PO Q6H PRN (Reason: pain) Qty: 10 0RF Rx Instructions: The patient may ask for partial fill; Partial Fill upon patient request. ondansetron 4 mg tablet,disintegrating 4 mg PO Q6-8H PRN (Reason: nausea and vomiting) Qty: 14 0RF No Action epinephrine 0.3 mg/0.3 mL auto-injector 0.3 ml IM ONCE PRN albuterol sulfate [Ventolin HFA] 90 mcg/actuation HFA aerosol inhaler 2 puff inhalation Q6H PRN (Reason: wheezing) Print Language: [place]
[2023-10-08] MEDS: iohexoL 350 MG/ML 100 ML INFUS..BTL 85 ML IV (01:01)
[2023-10-08] MEDS: Ketorolac Tromethamine 15 MG/ML VIAL IVPUSH (01:11)
[2023-10-08] MEDS: Lactated Ringers 1,000 ML 999 ML IV (01:12)
[2023-10-08] MEDS: ondansetron HCL 4 MG/2 ML VIAL IVPUSH (01:12)
[2023-10-08 01:31] VITALS: BP 114/55; PULSE 59; RESP 18; TEMP 36.6; O2SAT 97
[2023-10-08] MEDS: Amoxicillin/Potassium Clav 875 MG TABLET PO (02:11)
[2023-10-08 03:24] VITALS: BP 126/70; PULSE 53; RESP 18; TEMP 36.8; O2SAT 99
== END 2023-10-08 03:10 | disposition home or self-care (01) ==
PROVIDERS: Emergency Provider Emergency Medicine Emergency Medical Services; PCP Nurse Practitioner Family
DX: K57.32 Diverticulitis of large intestine without perforation or abscess without bleeding (principal); R07.81 Pleurodynia; R10.13 Epigastric pain; R11.2 Nausea with vomiting, unspecified; Z79.899 Other long term (current) drug therapy
CPT/HCPCS: 36415; 74177; 80053; 81001; 83690; 85025; 96365; 96375; 96376; 99284; 99285; J1885; J2405; J7120; Q9967